=== PATIENT | female | born 1990 | race Caucasian/White ===

== ENCOUNTER 2021-03-25 09:26 | Outpatient (REF) | payer OTHER, SELFPAY ==
[2021-03-26 02:50] LABS: CT PCR NOT DETECTED (Not Detect.); NG PCR NOT DETECTED (Not Detect.)
[2021-03-26 12:05] LABS: BV Int Neg Control Negative (Negative); BV Int Pos Control Positive (Positive)
[2021-03-28 01:47] LABS: HPV mRNA E6/E7 rflx Not Detected (Not Detected)
== END 2021-03-25 09:27 | disposition home or self-care (01) ==
LOC: HO.LAB 09:26
PROVIDERS: Visit Provider Advanced Practice Midwife
DX: Z01.411 Encounter for gynecological examination (general) (routine) with abnormal findings (principal); Z11.51 Encounter for screening for human papillomavirus (HPV); N81.6 Rectocele; N89.8 Other specified noninflammatory disorders of vagina; Z20.2 Contact with and (suspected) exposure to infections with a predominantly sexual mode of transmission
CPT/HCPCS: 87480; 87491; 87510; 87591; 87624; 87660; 88142; 99212